=== PATIENT | male | born 1970 | race Caucasian/White ===

== ENCOUNTER 2018-09-26 07:14 | Observation (INO) | payer BC ==
[2018-09-26] MEDS ORDERED: Aspirin 81 MG Tab.Chew PO ONE (07:27)
[2018-09-26] MEDS ORDERED: Sodium Chloride 0.9% 10 ML Syringe FLUSH PRN (07:27)
[2018-09-26] MEDS ORDERED: Sodium Chloride 0.9% 1,000 ML IV SCH (07:30)
[2018-09-26 08:10] LABS: CHLORIDE,CL 101 mmol/L (98-107); SODIUM,NA 138 mmol/L (136-145)
--- NOTE | 2018-09-26 08:18 | EDM.PDOC ---
ED HPI GENERAL MEDICAL PROBLEM - General Chief Complaint: Cardiovascular Problem Stated Complaint: PAINS IN CHEST AND BACK Time Seen by Provider: 09/26/18 07:26 Source of Information: Reports: Patient History Limitations: Reports: No Limitations - History of Present Illness INITIAL COMMENTS - FREE TEXT/NARRATIVE: Patient presents with history of back and chest pain that started on Monday. He reports that it does not really hurt more with movement, but more with sitting/lying around. History of [place] 9 years and 2 years ago. Stents were placed on both occasions. Is on chronic Brilinta. Additional history includes HTN and Diabetes. He denies any shortness of breath, no problems urinating. No blood in urine or stools. No abdominal pain. He states pain did improve with use of tylenol and ibuprofen. Additionally, he denies headache, no extremity weakness, numbness, or tingling. Rates chest pain 4/10. Given 4 baby aspirin. Onset: Gradual Onset Date: 09/22/18 Duration: Intermittent Location: Reports: Chest, Back Severity: Moderate Improves with: Reports: None Associated Symptoms: Reports: Chest Pain, Other (back pain) Treatments [employer]: Reports: Acetaminophen, NSAIDS Left Middle Back Pain Score (Numeric/FACES): 4 Chest Pain Score (Numeric/FACES): 2 - Related Data Allergies Allergy/AdvReac Type Severity Reaction Status Date / Time erythromycin base Allergy Hives Verified 09/26/18 07:39 [Erythromycin Base] Penicillins Allergy Hives Verified 09/26/18 07:39 mold Allergy Cannot Uncoded 09/26/18 07:39 Remember seasonal allergens Allergy Cannot Uncoded 09/26/18 07:39 Remember Home Meds: Home Meds Aspirin [Halfprin] 81 mg PO DAILY 11/14/13 [History] Fluticasone Propionate [Flonase] 1 - 2 sprays BERNY DAILY 11/14/13 [History] Metoprolol Succinate 25 mg PO DAILY 11/14/13 [History] Nitroglycerin [Nitrostat] 0.4 mg SL ASDIRECTED PRN 11/14/13 [History] Valsartan [Diovan] 80 mg PO DAILY 11/14/13 [History] buPROPion [Wellbutrin XL] 300 mg PO DAILY 11/14/13 [History] metFORMIN [Glucophage] 1,000 mg PO BIDM 04/03/14 [History] Omeprazole [Prilosec] 20 mg PO DAILY 03/31/16 [History] Cetirizine [ZyrTEC] 10 mg PO DAILY PRN 04/01/16 [History] Hydrocortisone Acetate [Anusol-Hc] 1 supp RECTAL BID 04/01/16 [History] atorvaSTATin Calcium [Atorvastatin Calcium] 40 mg PO DAILY 04/01/16 [History] Ticagrelor [Brilinta] 60 mg PO BID 09/26/18 [History] Past Medical History HEENT History: Reports: Allergic Rhinitis, Other (See Below) Other HEENT History: Allergic to pollen and mold Cardiovascular History: Reports: CAD, High Cholesterol, Hypertension, [place], Stents , Other (See Below) Other Cardiovascular History: [place] approximately 6 years ago Respiratory History: Reports: Sleep Apnea, Other (See Below) Other Respiratory History: JAIME on CPAP Gastrointestinal History: Reports: GERD, Hemorrhoids, Other (See Below) Other Gastrointestinal History: Gastric Erosions Genitourinary History: Reports: Other (See Below) Other Genitourinary History: Special screening for Malignant Neoplasm of Prostate. History of Angiomyolipoma Psychiatric History: Reports: Depression Endocrine/Metabolic History: Reports: Diabetes, Type II, Obesity/BMI 30+ - Past Surgical History HEENT Surgical History: Reports: Naso-Sinus Surgery, Tonsillectomy Cardiovascular Surgical History: Reports: Coronary Artery Stent, Other (See Below) ED ROS GENERAL - Review of Systems Review Of Systems: See Below Constitutional: Reports: No Symptoms HEENT: Reports: No Symptoms Respiratory: Reports: No Symptoms Cardiovascular: Reports: Chest Pain Endocrine: Reports: No Symptoms GI/Abdominal: Reports: No Symptoms : Reports: No Symptoms Musculoskeletal: Reports: Back Pain Skin: Reports: No Symptoms Neurological: Reports: No Symptoms Psychiatric: Reports: No Symptoms Hematologic/Lymphatic: Reports: No Symptoms Immunologic: Reports: No Symptoms ED EXAM, GENERAL - Physical Exam Exam: See Below Exam Limited By: No Limitations General Appearance: Alert, WD/WN, No Apparent Distress Eye Exam: Bilateral Eye: EOMI, Normal Inspection, PERRL Ears: Normal TMs Nose: Normal Inspection, Normal Mucosa, No Blood Throat/Mouth: Normal Inspection, Normal Lips, Normal Teeth, Normal Gums, Normal Oropharynx, Normal Voice, No Airway Compromise Head: Atraumatic, Normocephalic Neck: Normal Inspection, Supple, Non-Tender, Full Range of Motion Respiratory/Chest: No Respiratory Distress, Lungs Clear, Normal Breath Sounds, No Accessory Muscle Use, Chest Non-Tender Cardiovascular: Normal Peripheral Pulses, Regular Rate, Rhythm, No Edema, No Gallop, No JVD, No Murmur, No Rub GI/Abdominal: Normal Bowel Sounds, Soft, Non-Tender, No Organomegaly, No Distention, No Abnormal Bruit, No Mass Back Exam: Normal Inspection, Full Range of Motion, NT Extremities: Normal Inspection, Normal Range of Motion, Non-Tender, Normal Capillary Refill, No Pedal Edema Neurological: Alert, Oriented, CN II-XII Intact, Normal Cognition, Normal Gait, Normal Reflexes, No Motor/Sensory Deficits Psychiatric: Normal Affect, Normal Mood Skin Exam: Warm, Dry, Intact, Normal Color, No Rash Lymphatic: No Adenopathy Course - Vital Signs Last Recorded V/S: Last Vital Signs Temp 96.1 C H 09/26/18 09:09 Pulse 70 09/26/18 09:09 Resp 12 09/26/18 09:09 BP 117/81 09/26/18 09:09 Pulse Ox 96 09/26/18 09:09 - Orders/Labs/Meds Orders: Active Orders 24 hr Category Date Time Status EKG Documentation Completion [RC] STAT Care 09/26/18 07:28 Active Sodium Chloride 0.9% [Normal Saline] 1,000 ml Med 09/26/18 07:30 Active IV ASDIRECTED Sodium Chloride 0.9% [Saline Flush] Med 09/26/18 07:27 Active 10 ml FLUSH ASDIRECTED PRN Saline Lock Insert [OM.PC] Routine Oth 09/26/18 07:27 Ordered Medication Orders Hydrocodone Bitart/Acetaminophen ([place] 325-5 Mg) 2 tab PO Q4H PRN PRN Reason: Pain (moderate 4-6) Sodium Chloride (Normal Saline) 1,000 mls @ 999 mls/hr IV ASDIRECTED [facility] Last Admin: 09/26/18 09:09 Dose: 999 mls/hr Ondansetron HCl (Zofran Odt) 4 mg PO Q4H PRN PRN Reason: nausea, able to take PO Sodium Chloride (Saline Flush) 10 ml FLUSH ASDIRECTED PRN PRN Reason: Keep Vein Open Labs: Laboratory Tests 09/26/18 09/26/18 09/26/18 Range/Units 07:29 07:29 07:29 WBC 7.7 (4.0-10.0) x10^3/uL RBC 5.57 (4.5-6.0) x10^6/uL Hgb 17.6 (14.0-18.0) g/dL Hct 51.3 (40.0-52.0) % MCV 92.1 (78.0-93.0) fL MCH 31.6 (26.0-32.0) pg MCHC 34.3 (32.0-36.0) g/dL RDW Coeff of [place] 13.2 (10.0-15.0) % Plt Count 263 (130-400) x10^3/uL Add Manual Diff Yes Neutrophils % (Manual) 63 (50-80) % Lymphocytes % (Manual) 13 L (25-50) % Reactive Lymphs % 11 H (0) % Monocytes % (Manual) 10 (2-11) % Eosinophils % (Manual) 2 (0-4) % Basophils % (Manual) 1 (0-1) % Platelet Estimate Adequate PT 9.9 (9.6-11.4) SEC INR 0.9 L (2.0-3.5) D-Dimer, Quantitative (<=0.58) mg/LFEU Sodium 138 (136-145) mmol/L Potassium 4.0 (3.5-5.1) mmol/L Chloride 101 (98-107) mmol/L Carbon Dioxide 28 (21-32) mmol/L Anion Gap 13.0 (10-20) mmol/L BUN 22 H (7-18) mg/dL Creatinine 1.3 (0.70-1.30) mg/dL Est Cr Clr Drug Dosing TNP Estimated GFR (MDRD) 58 Glucose 217 H (74-106) mg/dL Calcium 8.7 (8.5-10.1) mg/dL Corrected Calcium 8.78 (8.5-10.1) mg/dL Magnesium 2.0 (1.8-2.4) mg/dL Total Bilirubin 0.7 (0.2-1.0) mg/dL AST 14 L (15-37) U/L ALT 30 (16-63) U/L Alkaline Phosphatase 106 (46-116) U/L Creatine Kinase 170 (39-308) U/L Troponin I < 0.017 (<=0.056) ng/mL NT-Pro-B Natriuret Pep 57 (<=125) pg/mL Total Protein 7.5 (6.4-8.2) g/dL Albumin 3.9 (3.4-5.0) g/dL Globulin 3.6 Albumin/Globulin Ratio 1.08 TSH, Ultra Sensitive 2.738 (0.358-3.74) uIU/mL 09/26/18 Range/Units 07:29 WBC (4.0-10.0) x10^3/uL RBC (4.5-6.0) x10^6/uL Hgb (14.0-18.0) g/dL Hct (40.0-52.0) % MCV (78.0-93.0) fL MCH (26.0-32.0) pg MCHC (32.0-36.0) g/dL RDW Coeff of [place] (10.0-15.0) % Plt Count (130-400) x10^3/uL Add Manual Diff Neutrophils % (Manual) (50-80) % Lymphocytes % (Manual) (25-50) % Reactive Lymphs % (0) % Monocytes % (Manual) (2-11) % Eosinophils % (Manual) (0-4) % Basophils % (Manual) (0-1) % Platelet Estimate PT (9.6-11.4) SEC INR (2.0-3.5) D-Dimer, Quantitative < 0.19 (<=0.58) mg/LFEU Sodium (136-145) mmol/L Potassium (3.5-5.1) mmol/L Chloride (98-107) mmol/L Carbon Dioxide (21-32) mmol/L Anion Gap (10-20) mmol/L BUN (7-18) mg/dL Creatinine (0.70-1.30) mg/dL Est Cr Clr Drug Dosing Estimated GFR (MDRD) Glucose (74-106) mg/dL Calcium (8.5-10.1) mg/dL Corrected Calcium (8.5-10.1) mg/dL Magnesium (1.8-2.4) mg/dL Total Bilirubin (0.2-1.0) mg/dL AST (15-37) U/L ALT (16-63) U/L Alkaline Phosphatase (46-116) U/L Creatine Kinase (39-308) U/L Troponin I (<=0.056) ng/mL NT-Pro-B Natriuret Pep (<=125) pg/mL Total Protein (6.4-8.2) g/dL Albumin (3.4-5.0) g/dL Globulin Albumin/Globulin Ratio TSH, Ultra Sensitive (0.358-3.74) uIU/mL Meds: Medications Generic Name Dose Route Start Last Admin Trade Name Freq PRN Reason Stop Dose Admin Hydrocodone Bitart/Acetaminophen 2 tab 09/26/18 09:09 [place] 325-5 Mg PO Q4H PRN Pain (moderate 4-6) Sodium Chloride 1,000 mls @ 999 mls/hr 09/26/18 07:30 09/26/18 09:09 Normal Saline IV 999 mls/hr ASDIRECTED [facility] Administration Ondansetron HCl 4 mg 09/26/18 09:09 Zofran Odt PO Q4H PRN nausea, able to take PO Sodium Chloride 10 ml 09/26/18 07:27 Saline Flush FLUSH ASDIRECTED PRN Keep Vein Open Discontinued Medications Generic Name Dose Route Start Last Admin Trade Name Freq PRN Reason Stop Dose Admin Aspirin 324 mg 09/26/18 07:27 09/26/18 07:25 Aspirin PO 09/26/18 07:28 324 mg ONETIME ONE Administration Departure - Departure Time of Disposition: 08:35 Disposition: Refer to Observation Condition: Good Clinical Impression: Atypical chest pain - Problem List & Annotations (1) Atypical chest pain SNOMED Code(s): 108132411 Code(s): R07.89 - OTHER CHEST PAIN Status: Acute Priority: Medium Current Visit: Yes - Problem List Review Problem List Initiated/Reviewed/Updated: Yes - My Orders Last 24 Hours: My Active Orders 09/26/18 07:27 Sodium Chloride 0.9% [Saline Flush] 10 ml FLUSH ASDIRECTED PRN Saline Lock Insert [OM.PC] Routine 09/26/18 07:28 EKG Documentation Completion [RC] STAT 09/26/18 07:30 Sodium Chloride 0.9% [Normal Saline] 1,000 ml IV ASDIRECTED - Assessment/Plan Last 24 Hours: My Active Orders 09/26/18 07:27 Sodium Chloride 0.9% [Saline Flush] 10 ml FLUSH ASDIRECTED PRN Saline Lock Insert [OM.PC] Routine 09/26/18 07:28 EKG Documentation Completion [RC] STAT 09/26/18 07:30 Sodium Chloride 0.9% [Normal Saline] 1,000 ml IV ASDIRECTED Assessment:: Atypical chest pain Plan: Plan 1. Admit observation 2. Trend troponin 3. If negative will dc home with recommendation to follow up with primary and cardiology follow up.
--- NOTE | 2018-09-26 08:42 | CR ---
[id number] RAD/RAD Chest PA or AP 1V EXAM: RAD Chest PA or AP 1V INDICATION: CHEST PAIN. COMPARISON: None. DISCUSSION: Cardiomediastinal silhouette is normal in size and contour. No infiltrate, effusion, pneumothorax, or edema. IMPRESSION: Negative examination of the chest. Ady Guardado MD 09/26/18 0841 Thank you for allowing us to participate in the care of your patient.
[2018-09-26] MEDS ORDERED: Ondansetron 4 MG Tab.DIS PO PRN (09:09)
[2018-09-26] MEDS ORDERED: Acetaminophen/HYDROcodone 325-5 MG Tab PO PRN (09:09)
[2018-09-26] MEDS ORDERED: Metoprolol Succinate 25 MG Tab.ER PO SCH (11:30)
[2018-09-26] MEDS ORDERED: TICAGRELOR 60 MG PO SCH (11:30)
[2018-09-26 14:01] VITALS: BP 128/75
--- NOTE | 2018-09-26 14:22 | PCM.DCSUM1 ---
Discharge Summary - Hospital Course HPI Initial Comments: Patient admitted observation to trend his troponin level. He presented to the ED this AM with complaints of chest and back pain that began on Monday. He has had prior [place] 9 years and 2 years ago with stent placement. Does take Brilinta daily since last [place] and stent placement. No additional pain with movement. He described more back and chest pain while lying still. He states the pain starts in his back and goes around to his chest on the left side. Second troponin draw this afternoon was negative. Diagnosis: Stroke: No - Discharge Data Discharge Date: 09/26/18 Discharge Disposition: Home, Self-Care 01 Condition: Good - Discharge Diagnosis/Problem(s) (1) Atypical chest pain SNOMED Code(s): 884586428 ICD Code: R07.89 - OTHER CHEST PAIN Status: Acute Priority: Medium Current Visit: Yes - Patient Instructions Diet: Regular Diet as Tolerated Activity: As Tolerated Other/Special Instructions: Follow up with cardiology in [place] for additional testing - Discharge Plan *PRESCRIPTION DRUG MONITORING PROGRAM REVIEWED*: No *COPY OF PRESCRIPTION DRUG MONITORING REPORT IN PATIENT STEVIE: No Home Medications: Home Meds Aspirin [Halfprin] 81 mg PO DAILY 11/14/13 [History] Fluticasone Propionate [Flonase] 1 - 2 sprays BERNY DAILY 11/14/13 [History] Metoprolol Succinate 25 mg PO DAILY 11/14/13 [History] Nitroglycerin [Nitrostat] 0.4 mg SL ASDIRECTED PRN 11/14/13 [History] Valsartan [Diovan] 80 mg PO DAILY 11/14/13 [History] buPROPion [Wellbutrin XL] 300 mg PO DAILY 11/14/13 [History] metFORMIN [Glucophage] 1,000 mg PO BIDM 11/14/13 [History] Omeprazole [Prilosec] 20 mg PO DAILY 03/31/16 [History] Cetirizine [ZyrTEC] 10 mg PO DAILY PRN 04/01/16 [History] Hydrocortisone Acetate [Anusol-Hc] 1 supp RECTAL BID 04/01/16 [History] atorvaSTATin Calcium [Atorvastatin Calcium] 40 mg PO DAILY 04/01/16 [History] Ticagrelor [Brilinta] 60 mg PO BID 09/26/18 [History] Forms: ED Department Discharge Referrals: Meryl Harvey DO [Primary Care Provider] - - Discharge Summary/Plan Comment DC Time >30 min.: No Discharge Summary/Plan Comment: Plan 1. Follow up with cardiology in [place]. You may need additional testing such as a stress test or another angiogram to rule out further blockage. 2. Drink plenty of water. 3. Try to follow up with primary provider as well. - General Info Date of Service: 09/26/18 Admission Dx/Problem (Free Text: chest pain Functional Status: Reports: Pain Controlled - Review of Systems General: Reports: No Symptoms HEENT: Reports: No Symptoms Pulmonary: Reports: No Symptoms Cardiovascular: Reports: No Symptoms (pain has improved) Gastrointestinal: Reports: No Symptoms Genitourinary: Reports: No Symptoms Musculoskeletal: Reports: No Symptoms Skin: Reports: No Symptoms Neurological: Reports: No Symptoms Psychiatric: Reports: No Symptoms - Patient Data Vitals - Most Recent: Last Vital Signs Temp 36.4 C 09/26/18 13:59 Pulse 72 09/26/18 13:59 Resp 16 09/26/18 13:59 BP 128/75 09/26/18 13:59 Pulse Ox 94 L 09/26/18 13:59 Weight - Most Recent: 136.531 kg I&O - Last 24 hours: Intake & Output 09/25/18 09/26/18 09/26/18 22:59 06:59 14:59 Intake Total 240 Output Total 900 Balance -660 Lab Results - Last 24 hrs: Laboratory Results - last 24 hr 09/26/18 09/26/18 09/26/18 Range/Units 07:29 07:29 07:29 WBC 7.7 (4.0-10.0) x10^3/uL RBC 5.57 (4.5-6.0) x10^6/uL Hgb 17.6 (14.0-18.0) g/dL Hct 51.3 (40.0-52.0) % MCV 92.1 (78.0-93.0) fL MCH 31.6 (26.0-32.0) pg MCHC 34.3 (32.0-36.0) g/dL RDW Coeff of [place] 13.2 (10.0-15.0) % Plt Count 263 (130-400) x10^3/uL Add Manual Diff Yes Neutrophils % (Manual) 63 (50-80) % Lymphocytes % (Manual) 13 L (25-50) % Reactive Lymphs % 11 H (0) % Monocytes % (Manual) 10 (2-11) % Eosinophils % (Manual) 2 (0-4) % Basophils % (Manual) 1 (0-1) % Platelet Estimate Adequate PT 9.9 (9.6-11.4) SEC INR 0.9 L (2.0-3.5) D-Dimer, Quantitative (<=0.58) mg/LFEU Sodium 138 (136-145) mmol/L Potassium 4.0 (3.5-5.1) mmol/L Chloride 101 (98-107) mmol/L Carbon Dioxide 28 (21-32) mmol/L Anion Gap 13.0 (10-20) mmol/L BUN 22 H (7-18) mg/dL Creatinine 1.3 (0.70-1.30) mg/dL Est Cr Clr Drug Dosing TNP Estimated GFR (MDRD) 58 Glucose 217 H (74-106) mg/dL Calcium 8.7 (8.5-10.1) mg/dL Corrected Calcium 8.78 (8.5-10.1) mg/dL Magnesium 2.0 (1.8-2.4) mg/dL Total Bilirubin 0.7 (0.2-1.0) mg/dL AST 14 L (15-37) U/L ALT 30 (16-63) U/L Alkaline Phosphatase 106 (46-116) U/L Creatine Kinase 170 (39-308) U/L Troponin I < 0.017 (<=0.056) ng/mL NT-Pro-B Natriuret Pep 57 (<=125) pg/mL Total Protein 7.5 (6.4-8.2) g/dL Albumin 3.9 (3.4-5.0) g/dL Globulin 3.6 Albumin/Globulin Ratio 1.08 TSH, Ultra Sensitive 2.738 (0.358-3.74) uIU/mL Urine Color (YELLOW) Urine Appearance (CLEAR) Urine pH (5.0-8.0) Ur Specific [place] Urine Protein (NEGATIVE) mg/dL Urine Glucose (UA) (NEGATIVE) mg/dL Urine Ketones (NEGATIVE) mg/dL Urine Occult Blood (NEGATIVE) Urine Nitrite (NEGATIVE) Urine Bilirubin (NEGATIVE) Urine Urobilinogen (0.2) EU/dL Ur Leukocyte Esterase (NEGATIVE) Urine RBC (NOT SEEN) /HPF Urine WBC (NOT SEEN) /HPF Ur Squamous Epith Cells (NEGATIVE) /HPF Urine Bacteria (NEGATIVE) /HPF Urine Mucus (NEGATIVE) /LPF 09/26/18 09/26/18 09/26/18 Range/Units 07:29 09:08 13:21 WBC (4.0-10.0) x10^3/uL RBC (4.5-6.0) x10^6/uL Hgb (14.0-18.0) g/dL Hct (40.0-52.0) % MCV (78.0-93.0) fL MCH (26.0-32.0) pg MCHC (32.0-36.0) g/dL RDW Coeff of [place] (10.0-15.0) % Plt Count (130-400) x10^3/uL Add Manual Diff Neutrophils % (Manual) (50-80) % Lymphocytes % (Manual) (25-50) % Reactive Lymphs % (0) % Monocytes % (Manual) (2-11) % Eosinophils % (Manual) (0-4) % Basophils % (Manual) (0-1) % Platelet Estimate PT (9.6-11.4) SEC INR (2.0-3.5) D-Dimer, Quantitative < 0.19 (<=0.58) mg/LFEU Sodium (136-145) mmol/L Potassium (3.5-5.1) mmol/L Chloride (98-107) mmol/L Carbon Dioxide (21-32) mmol/L Anion Gap (10-20) mmol/L BUN (7-18) mg/dL Creatinine (0.70-1.30) mg/dL Est Cr Clr Drug Dosing Estimated GFR (MDRD) Glucose (74-106) mg/dL Calcium (8.5-10.1) mg/dL Corrected Calcium (8.5-10.1) mg/dL Magnesium (1.8-2.4) mg/dL Total Bilirubin (0.2-1.0) mg/dL AST (15-37) U/L ALT (16-63) U/L Alkaline Phosphatase (46-116) U/L Creatine Kinase (39-308) U/L Troponin I < 0.017 (<=0.056) ng/mL NT-Pro-B Natriuret Pep (<=125) pg/mL Total Protein (6.4-8.2) g/dL Albumin (3.4-5.0) g/dL Globulin Albumin/Globulin Ratio TSH, Ultra Sensitive (0.358-3.74) uIU/mL Urine Color Yellow (YELLOW) Urine Appearance Clear (CLEAR) Urine pH 5.5 (5.0-8.0) Ur Specific [place] 1.010 Urine Protein Negative (NEGATIVE) mg/dL Urine Glucose (UA) 500 H (NEGATIVE) mg/dL Urine Ketones Negative (NEGATIVE) mg/dL Urine Occult Blood Negative (NEGATIVE) Urine Nitrite Negative (NEGATIVE) Urine Bilirubin Negative (NEGATIVE) Urine Urobilinogen 0.2 (0.2) EU/dL Ur Leukocyte Esterase Negative (NEGATIVE) Urine RBC 0-5 (NOT SEEN) /HPF Urine WBC 0-5 (NOT SEEN) /HPF Ur Squamous Epith Cells Rare (NEGATIVE) /HPF Urine Bacteria Not seen (NEGATIVE) /HPF Urine Mucus Not seen (NEGATIVE) /LPF Med Orders - Current: Current Medications Hydrocodone Bitart/Acetaminophen ([place] 325-5 Mg) 2 tab PO Q4H PRN PRN Reason: Pain (moderate 4-6) Sodium Chloride (Normal Saline) 1,000 mls @ 999 mls/hr IV ASDIRECTED [facility] Last Admin: 09/26/18 09:09 Dose: 999 mls/hr [facility] Metoprolol Succinate (Toprol Xl) 25 mg PO DAILY [facility] Last Admin: 09/26/18 11:55 Dose: Not Given Ticagrelor [Brilinta (] 60 MgOwn Med) 60 mg PO BID [facility] Last Admin: 09/26/18 11:55 Dose: Not Given Ondansetron HCl (Zofran Odt) 4 mg PO Q4H PRN PRN Reason: nausea, able to take PO Sodium Chloride (Saline Flush) 10 ml FLUSH ASDIRECTED PRN PRN Reason: Keep Vein Open Discontinued Medications Aspirin (Aspirin) 324 mg PO ONETIME ONE Stop: 09/26/18 07:28 Last Admin: 09/26/18 07:25 Dose: 324 mg - Exam General: Reports: Alert, Oriented, Cooperative, No Acute Distress HEENT: Reports: Pupils Equal Lungs: Reports: Clear to Auscultation, Normal Respiratory Effort Cardiovascular: Reports: Regular Rate, Regular Rhythm GI/Abdominal Exam: Normal Bowel Sounds, Soft, Non-Tender, No Organomegaly, No Distention, No Abnormal Bruit, No Mass, Pelvis Stable Extremities: Normal Inspection, Normal Range of Motion, Non-Tender, No Pedal Edema, Normal Capillary Refill Skin: Reports: Warm, Dry, Intact Wound/Incisions: Reports: Healing Well Neurological: Reports: No New Focal Deficit Psy/Mental Status: Reports: Alert, Normal Affect, Normal Mood
[2018-09-26] MEDS ORDERED: metFORMIN 500 MG Tab PO SCH (18:00)
== END 2018-09-26 14:30 | disposition home or self-care (01) ==
LOC: VM.ED 07:14 → VM.MS 08:32
PROVIDERS: ADMIT Nurse Practitioner Family; ATTEND Nurse Practitioner Family
DX: R07.89 Other chest pain (principal); M54.9 Dorsalgia, unspecified; R74.8 Abnormal levels of other serum enzymes; I10 Essential (primary) hypertension; I25.2 Old myocardial infarction; I25.10 Atherosclerotic heart disease of native coronary artery without angina pectoris; E11.9 Type 2 diabetes mellitus without complications; E78.00 Pure hypercholesterolemia, unspecified; K21.9 Gastro-esophageal reflux disease without esophagitis; G47.33 Obstructive sleep apnea (adult) (pediatric); E66.9 Obesity, unspecified; Z68.31 Body mass index [BMI] 31.0-31.9, adult; Z88.1 Allergy status to other antibiotic agents; Z88.0 Allergy status to penicillin; Z91.09 Other allergy status, other than to drugs and biological substances; Z99.89 Dependence on other enabling machines and devices; Z95.5 Presence of coronary angioplasty implant and graft; Z79.02 Long term (current) use of antithrombotics/antiplatelets; Z79.82 Long term (current) use of aspirin; Z79.51 Long term (current) use of inhaled steroids; Z79.84 Long term (current) use of oral hypoglycemic drugs; Z79.899 Other long term (current) drug therapy
CPT/HCPCS: 36415; 71045; 80053; 81001; 82550; 83735; 83880; 84443; 84484; 85025; 85379; 85610; 93005; 96360; 99285; A9270; G0378; J7030

== ENCOUNTER 2022-12-15 19:41 | Emergency (ER) | payer BC ==
[2022-12-15] MEDS ORDERED: Heparin Sodium 5,000 Units/ML Vial IVPUSH ONE (20:11)
[2022-12-15] MEDS ORDERED: Clopidogrel 75 MG Tab PO ONE (20:15)
[2022-12-15] MEDS ORDERED: Heparin Sodium/0.45% NaCl 25,000 UNITS/500 ML BAG IV SCH (20:15)
[2022-12-15] MEDS ORDERED: Clopidogrel 75 MG Tab ONE (20:17)
[2022-12-15] MEDS ORDERED: Heparin Sodium/0.45% NaCl 500 ML ONE (20:18)
[2022-12-15 20:21] LABS: BASOPHILS ABSOLUTE AUTO 0.1 x10^3/uL (0.0-0.2); BASOPHILS PERCENT AUTO 0.5 % (0.2-1.2); EOSINOPHILS ABSOLUTE AUTO 0.2 x10^3/uL (0.0-0.5); EOSINOPHILS PERCENT AUTO 1.3 % (0.0-4.0); HEMATOCRIT 47.2 % (40.0-52.0); HEMOGLOBIN 16.2 g/dL (14.0-18.0); IMMATURE GRAN ABSOLUTE AUTO 0.05 x10^3/uL (0.00-0.07); LYMPHOCYTES PERCENT AUTO 12.8 % (25.0-50.0); MEAN CORPUSCULAR HEMOGLOBIN 30.7 pg (26.0-32.0); MEAN CORPUSCULAR HGB CONC 34.3 g/dL (32.0-36.0); MEAN CORPUSCULAR VOLUME 89.6 fL (78.0-93.0); MONOCYTES ABSOLUTE AUTO 1.3 x10^3/uL (0.0-0.8); MONOCYTES PERCENT AUTO 8.2 % (2.0-11.0); NEUTROPHILS ABSOLUTE AUTO 12.3 x10^3/uL (1.8-7.7); NEUTROPHILS PERCENT AUTO 76.9 % (50.0-80.0); PLATELET COUNT,PLT 293 x10^3/uL (130-400); RED BLOOD CELL COUNT 5.27 x10^6/uL (4.5-6.0)
[2022-12-15] MEDS ORDERED: Nitroglycerin/D5W 25 MG/250 ML BOTTLE IV SCH (20:30)
[2022-12-15 20:34] LABS: PROTHROMBIN TIME 10.9 SEC (9.5-12.2); PTT,PARTIAL THROMBOPLSTIN TIME 31.5 SEC (23.6-33.6)
[2022-12-15 20:38] LABS: A/G RATIO 1.14; ALANINE AMINOTRANSFERASE,ALT 37 U/L (16-63); ALKALINE PHOSPHATASE 101 U/L (46-116); ASPARTATE AMNIOTRANSFERASE,AST 13 U/L (15-37); BILIRUBIN TOTAL 0.9 mg/dL (0.2-1.0); BLOOD UREA NITROGEN,BUN 21 mg/dL (7-18); CALCIUM 9.1 mg/dL (8.5-10.1); CARBON DIOXIDE,CO2 25 mmol/L (21-32); CHLORIDE,CL 100 mmol/L (98-107); CREATINE KINASE,CK 157 U/L (39-308); CREATININE 1.2 mg/dL (0.70-1.30); ESTIMATED GFR 72 mL/min (>=60); GLUCOSE RANDOM 288 mg/dL (70-99); LACTATE DEHYDROGENASE,LDH 156 U/L (85-227); PROTEIN TOTAL,TP 7.5 g/dL (6.4-8.2); SODIUM,NA 135 mmol/L (136-145)
== END 2022-12-15 20:35 | disposition short-term general hospital (02) ==
LOC: VM.ED 19:41
DX: I21.4 Non-ST elevation (NSTEMI) myocardial infarction (principal); I25.10 Atherosclerotic heart disease of native coronary artery without angina pectoris; I10 Essential (primary) hypertension; I25.2 Old myocardial infarction; E11.9 Type 2 diabetes mellitus without complications; F17.290 Nicotine dependence, other tobacco product, uncomplicated; E66.9 Obesity, unspecified; Z68.30 Body mass index [BMI] 30.0-30.9, adult; Z88.1 Allergy status to other antibiotic agents; Z88.0 Allergy status to penicillin; Z91.048 Other nonmedicinal substance allergy status; Z79.82 Long term (current) use of aspirin; Z79.02 Long term (current) use of antithrombotics/antiplatelets; Z79.899 Other long term (current) drug therapy
CPT/HCPCS: 80053; 82550; 83615; 84484; 85025; 85610; 85730; 93005; 93010; 96365; 96375; 99284; 99285-25